=== PATIENT | male | born 1960 | race Caucasian/White ===

== ENCOUNTER 2016-11-04 00:04 | Inpatient (IN) | payer SELFPAY ==
[2016-11-04] MEDS ORDERED: NORMAL SALINE 1000 ML 1,000 ML IV ONE ×2 (00:16→01:46)
[2016-11-04 00:26] LABS: ABSOLUTE MONOCYTES (AUTO) 0.2 10^3/uL (0.1-1.4); ABSOLUTE NEUT (AUTO) 3.4 10^3/uL (1.7-8.2); BASOPHILS % (AUTO) 0.2 % (0-2); EOSINOPHILS % (AUTO) 0.4 % (0-6); HEMATOCRIT 49.7 % (37.9-51.0); HEMOGLOBIN 16.2 g/dL (13.5-17.0); HGB HCT DIFFERENCE -1.1; LYMPHOCYTES % (AUTO) 35.2 % (13-45); MEAN CORPUSCULAR HEMOGLOBIN 31.6 pg (27.0-33.4); MEAN CORPUSCULAR HGB CONC 32.5 g/dL (32.0-36.0); MEAN CORPUSCULAR VOLUME 97 fl (80-97); MONOCYTES % (AUTO) 3.4 % (3-13); RED CELL DISTRIBUTION WIDTH 15.8 % (11.5-14.0); SEGMENTED NEUTROPHILS % (AUTO) 60.8 % (42-78); WHITE BLOOD COUNT 5.7 10^3/uL (4.0-10.5)
[2016-11-04 00:38] LABS: BILIRUBIN,URINE NEGATIVE (NEGATIVE); GLUCOSE, URINE NEGATIVE (NEGATIVE); KETONES,URINE TRACE mg/dL (NEGATIVE); LEUKOCYTE ESTERASE,URINE NEGATIVE (NEGATIVE); NITRITE,URINE NEGATIVE (NEGATIVE); PROTEIN,URINE NEGATIVE (NEGATIVE); URINE SPECIFIC GRAVITY 1.013; UROBILINOGEN,URINE NEGATIVE mg/dL (<2.0)
[2016-11-04 00:39] LABS: APPEARANCE,URINE SLIGHTLY-CLOUDY
[2016-11-04 00:41] LABS: ALANINE AMINOTRANSFERASE 63 U/L (21-72); ALBUMIN 4.5 g/dL (3.5-5.0); ALCOHOL 196 mg/dL (NONE DETECTED); ALKALINE PHOSPHATASE 91 U/L (38-126); ASPARTATE AMINO TRANSFERASE 69 U/L (17-59); BILIRUBIN,TOTAL 0.6 mg/dL (0.2-1.3); BLOOD UREA NITROGEN 10 mg/dL (7-20); CALCIUM 8.8 mg/dL (8.4-10.2); CREATININE RESULT 1.05 mg/dL (0.52-1.25); GLUCOSE 140 mg/dL (75-110); TOTAL PROTEIN 7.3 g/dL (6.3-8.2)
[2016-11-04 00:50] LABS: ANION GAP 19 (5-19); CARBON DIOXIDE 23 mmol/L (22-30); CHLORIDE 109 mmol/L (98-107); SODIUM 150.9 mmol/L (137-145)
[2016-11-04 01:00] LABS: URINE BARBITURATES SCREEN NEGATIVE; URINE METHADONE SCREEN NEGATIVE; URINE PHENCYCLIDINE SCREEN NEGATIVE
--- NOTE | 2016-11-04 01:32 | ER Document Report ---
ED General - General Chief Complaint: Overdose Stated Complaint: POSSIBLE SUICIDAL IDEATION Notes: Patient is a 56-year-old male, unknown past medical history who presents intoxicated after a suicide attempt using ethylene glycol, alcohol and clonazepam. He does not provide meaningful history due to intoxication and somnolence at time of arrival. EMS states that the mother found the patient passed out on the floor with a glass of antifreeze next to him. He had apparently been drinking vodka all day. He also had an empty bottle of clonazepam next to him. Per chart review, patient has a prior history of mental illness and suicide attempts in the past. Patient is a very poor historian and unable to provide helpful history although he does repeatedly say yes when asked if this is a suicide attempt. - Related Data Allergies/Adverse Reactions: No Known Allergies Allergy (Unverified 11/04/16 00:38) Past Medical History - General Information source: Patient, Emergency Med Personnel Cannot obtain history due to: Intoxicated - Social History Smoking Status: Unknown if Ever Smoked Frequency of alcohol use: Occasional Family History: Reviewed & Not Pertinent Review of Systems - Review of Systems -: Yes ROS unobtainable due to patient's medical condition Physical Exam - Vital signs Vitals: Temp Resp BP Pulse Ox 98.9 F 18 146/110 H 95 11/04/16 00:14 11/04/16 00:14 11/04/16 00:14 11/04/16 00:14 Interpretation: Tachycardic Notes: PHYSICAL EXAMINATION: GENERAL: Disheveled and intoxicated but in no acute distress HEAD: Atraumatic, normocephalic. EYES: Pupils equal round and reactive to light, extraocular movements intact, sclera anicteric, conjunctiva are normal. ENT: nares patent, oropharynx clear without exudates. Dry mucous membranes. NECK: Normal range of motion, supple without lymphadenopathy LUNGS: Breath sounds clear to auscultation bilaterally and equal. No wheezes rales or rhonchi. HEART: Regular tachycardia without murmurs ABDOMEN: Soft, nontender, normoactive bowel sounds. No guarding, no rebound. No masses appreciated. EXTREMITIES: Normal range of motion, no pitting or edema. No cyanosis. NEUROLOGICAL: No focal neurological deficits. Moves all extremities spontaneously and on command. PSYCH: Intoxicated and somewhat somnolent but does respond to questions SKIN: Warm, Dry, normal turgor, no rashes or lesions noted. Course - Re-evaluation Re-evalutation: 11/04/16 0040 Patient arrives by EMS, confused, but does report his name that he drank flank like all. Patient was also noted to be drinking ethanol and apparently swallowed an unknown quantity of clonazepam. He is high risk for decompensation given his polysubstance ingestion including multiple agents that suppress a respiratory drive. He was immediately placed on monitoring specialist, IV fluids initiated, and a full laboratory assessment has been drawn. He is critically ill at this time and will require frequent reassessments 0120-patient continues to protect his airway without difficulty, actually somewhat more alert at this time. Laboratories show findings consistent with ethylene glycol toxicity. Calculated serum osmolality is 312 and serum osmosis 486. Osmolal gap was 174. This is consistent with ethylene glycol ingestion. I discussed this case with poison control who recommends initiation of fomepizole therapy at this time 15 mg/kg load and 10 mg/kg every 12 hours thereafter. Patient will require admission. No indication for dialysis at this time. 11/04/16 01:55 I discussed this case with the hospitalist Dr. Jhaveri who will admit the patient. I have placed the patient under IVC given the severity of his ingestion and his mission to me that this was a suicide attempt. He continues to be hemodynamically within normal limits and in no acute distress at this time. Continues to maintain his airway and his mental status is actually improved from the time of arrival. - Vital Signs Vital signs: Temp Pulse Resp BP Pulse Ox 98.9 F 18 146/110 H 92 11/04/16 00:14 11/04/16 00:14 11/04/16 00:14 11/04/16 00:15 - Laboratory Result Diagrams: 11/04/16 00:15 11/04/16 00:15 Laboratory results interpreted by me: 11/04/16 11/04/16 11/04/16 00:15 00:15 00:15 RDW 15.8 H Sodium 150.9 H Chloride 109 H Glucose 140 H Serum Osmolality 486 H AST 69 H Urine Ketones Urine Blood Salicylates < 1.0 L Acetaminophen < 10 L 11/04/16 00:25 RDW Sodium Chloride Glucose Serum Osmolality AST Urine Ketones TRACE H Urine Blood LARGE H Salicylates Acetaminophen - EKG Interpretation by Me Additional EKG results interpreted by me: 11/04/16 01:56 Sinus tachycardia. Rate 105. No ST elevations or depressions. QTC 498. Critical Care Note - Critical Care Note Total time excluding time spent on procedures (mins): 40 Comments: Critical care time spent obtaining history from patient or surrogate, discussions with consultants, development of treatment plan with patient or surrogate, evaluation of patient's response to treatment, examination of patient , ordering and performing treatments and interventions, ordering and review of laboratory studies, re-evaluation of patient's condition, ordering and review of radiographic studies and review of old charts Discharge - Discharge Clinical Impression: Attempted suicide Ethylene glycol poisoning Qualifiers: Encounter type: initial encounter Injury intent: intentional self-harm Qualified Code(s): T52.8X2A - Toxic effect of other organic solvents, intentional self-harm, initial encounter Alcohol intoxication Qualifiers: Complication of substance-induced condition: uncomplicated Qualified Code(s): F10.120 - Alcohol abuse with intoxication, uncomplicated Benzodiazepine overdose Qualifiers: Encounter type: initial encounter Injury intent: intentional self-harm Qualified Code(s): T42.4X2A - Poisoning by benzodiazepines, intentional self- harm, initial encounter Condition: Critical Disposition: ADMITTED INPATIENT Admitting Provider: [facility] Admitted: ICU
[2016-11-04] MEDS ORDERED: ALBUTEROL SULFATE 0.083% NEB 2.5 MG/3 ML AMPUL NEB PRN (02:59)
[2016-11-04 03:09] LABS: BLOOD UREA NITROGEN 10 mg/dL (7-20); CALCIUM 9.1 mg/dL (8.4-10.2); CARBON DIOXIDE 20 mmol/L (22-30); CHLORIDE 113 mmol/L (98-107); CREATININE RESULT 0.98 mg/dL (0.52-1.25); GLUCOSE 137 mg/dL (75-110)
[2016-11-04] MEDS ORDERED: FOMEPIZOLE INJ 1.5 GM/1.5 ML VIAL IV ONE (03:15)
[2016-11-04] MEDS ORDERED: THIAMINE HCL 100 MG, FOLIC ACID 1 MG in NORMAL SALINE 50 ML IV ONE (03:15)
[2016-11-04 03:18] LABS: ANION GAP 22 (5-19)
[2016-11-04 03:38] LABS: ARTERIAL BLOOD BASE EXCESS -2.7 mmol/L; ARTERIAL BLOOD O2 SATURATION 95.8 % (94-98)
[2016-11-04] MEDS ORDERED: THIAMINE HCL INJ 200 MG/2 ML VIAL ONE (03:46)
[2016-11-04] MEDS ORDERED: FOLIC ACID INJ 5 MG/1 ML 10 ML VIAL ONE (03:47)
[2016-11-04] MEDS ORDERED: SODIUM BICARBONATE 8.4% INJ 50 MEQ/50 ML DISP.SYRIN ONE (03:49)
[2016-11-04] MEDS ORDERED: LEUCOVORIN INJ ONE (03:57)
[2016-11-04] MEDS: DEXTROSE 5%-WATER 1000 ML 1,000 ML with SODIUM BICARBONATE 150 MEQ IV SCH ×4 (04:10→18:56)
[2016-11-04] MEDS ORDERED: WATER IV ONE ×2 (04:45→10:00)
[2016-11-04] MEDS ORDERED: LEUCOVORIN CALCIUM IV ONE ×2 (04:45→10:00)
[2016-11-04] MEDS ORDERED: DEXTROSE 5% IV ONE ×2 (04:45→10:00)
[2016-11-04 05:03] LABS: CREATINE KINASE MB < 0.22 ng/mL (<4.55); TROPONIN I < 0.012 ng/mL
--- NOTE | 2016-11-04 05:03 | PDOC H&P ---
History of Present Illness Admission Date/PCP: 11/04/16 02:18 Patient complains of: Altered mental status History of Present Illness: LORENE BOWDEN is a 56 year old male with a past medical history of depression and suicide attempt by wrist cutting. It was discovered by his elderly mother unresponsive on the floor and brought to the emergency room for evaluation where his found to be intermittently cooperative and intoxicated. Stating he has ingested an unknown quantity of vodka, antifreeze and approximately 15/2 mg tablets of Klonopin with intention of suicide. Labs confirm alcohol level of 200 and a serum osmolality of 486. Poison control is contacted recommending omeprazole bicarbonate thiamine folate, serial chemistries and supportive measures and is referred to the hospitalist for admission as emergent dialysis is felt unwarranted. Past Medical History Psychiatric Medical History: Reports: Depression Social History Information Source: Patient, Emergency Med Personnel, [facility] Records Lives with: Family Smoking Status: Unknown if Ever Smoked - Advance Directive Resuscitation Status: Full Code Family History Family History: Other - Patient unwilling to answer Parental Family History Reviewed: Yes Children Family History Reviewed: Yes Sibling(s) Family History Reviewed.: Yes Medication/Allergy Allergies/Adverse Reactions: No Known Allergies Allergy (Unverified 11/04/16 00:38) Review of Systems ROS unobtainable: Due to mental status Physical Exam Vital Signs: Temp Pulse Resp BP Pulse Ox 98.9 F 17 149/113 H 98 11/04/16 00:14 11/04/16 03:00 11/04/16 04:14 11/04/16 04:14 General appearance: PRESENT: disheveled, mild distress Head exam: PRESENT: atraumatic, normocephalic Eye exam: PRESENT: conjunctiva pink, EOMI, PERRLA. ABSENT: scleral icterus Ear exam: PRESENT: normal external ear exam Mouth exam: PRESENT: moist, tongue midline Neck exam: ABSENT: carotid bruit, JVD, lymphadenopathy, thyromegaly Respiratory exam: PRESENT: clear to auscultation kathleen. ABSENT: rales, rhonchi, wheezes Cardiovascular exam: PRESENT: RRR. ABSENT: diastolic murmur, rubs, systolic murmur Pulses: PRESENT: normal dorsalis pedis pul Vascular exam: PRESENT: normal capillary refill GI/Abdominal exam: PRESENT: normal bowel sounds, soft. ABSENT: distended, guarding, mass, organolmegaly, rebound, tenderness Rectal exam: PRESENT: deferred Extremities exam: PRESENT: full ROM. ABSENT: calf tenderness, clubbing, pedal edema Neurological exam: PRESENT: alert, altered, awake, oriented to person, CN II- XII grossly intact. ABSENT: motor sensory deficit Psychiatric exam: PRESENT: flat affect Skin exam: PRESENT: dry, intact, warm. ABSENT: cyanosis, rash Results Laboratory Results: 11/04/16 02:28 11/04/16 11/04/16 02:28 03:16 Carbonic Acid 1.25 HCO3/H2CO3 Ratio 18:1 ABG pH 7.36 ABG pCO2 41.4 ABG pO2 83.4 ABG HCO3 22.7 ABG O2 Saturation 95.8 ABG Base Excess -2.7 FiO2 2L Sodium 155.0 H Potassium 5.0 Chloride 113 H Carbon Dioxide 20 L Anion Gap 22 H BUN 10 Creatinine 0.98 Est GFR ( Amer) > 60 Est GFR (Non-Af Amer) > 60 Glucose 137 H Calcium 9.1 Assessment & Plan - Diagnosis (1) Ethylene glycol poisoning Qualifiers: Encounter type: initial encounter Injury intent: intentional self-harm Qualified Code(s): T52.8X2A - Toxic effect of other organic solvents, intentional self-harm, initial encounter Is this a current diagnosis for this admission?: YesPlan: Discussed with poison control recommending omeprazole every 12 hours, thiamine folate, bicarbonate and serial chemistries. (2) Alcohol intoxication Qualifiers: Complication of substance-induced condition: uncomplicated Qualified Code(s): F10.120 - Alcohol abuse with intoxication, uncomplicated Is this a current diagnosis for this admission?: YesPlan: Thiamine folate and supportive measures (3) Benzodiazepine overdose Qualifiers: Encounter type: initial encounter Injury intent: intentional self-harm Qualified Code(s): T42.4X2A - Poisoning by benzodiazepines, intentional self-harm, initial encounter Is this a current diagnosis for this admission?: YesPlan: Though stated by patient to have ingested 15 prior to presentation I am doubtful given his mental status as he is not sedated the likely dependent I anticipate benzodiazepine withdrawal and will likely require low-dose every 12 Ativan (4) Suicide attempt Is this a current diagnosis for this admission?: YesPlan: Patient states intention of suicide will consult mental health - Time Time Spent: 50 to 70 Minutes
[2016-11-04] MEDS ORDERED: ONDANSETRON HCL INJ/PF 4 MG/2 ML SDV ONE (05:39)
[2016-11-04] MEDS ORDERED: ONDANSETRON HCL INJ/PF 4 MG/2 ML SDV IV ONE (05:50)
[2016-11-04] MEDS ORDERED: INFLUENZA ADLT QUAD (36MOS+) 2016-17 VAC 0.5 ML SYR IM PRN (05:51)
[2016-11-04] MEDS: HEPARIN SOD (PORCINE) 5,000 UNIT/ML 1 ML SYRINGE SUBCUT SCH ×3 (06:17→22:30)
[2016-11-04 06:44] LABS: ANION GAP 18 (5-19); BLOOD UREA NITROGEN 10 mg/dL (7-20); CALCIUM 8.6 mg/dL (8.4-10.2); CARBON DIOXIDE 23 mmol/L (22-30); CHLORIDE 114 mmol/L (98-107); CREATINE KINASE 72 U/L (55-170); CREATININE RESULT 0.95 mg/dL (0.52-1.25); GLUCOSE 155 mg/dL (75-110); POTASSIUM 4.7 mmol/L (3.6-5.0); SODIUM 154.6 mmol/L (137-145)
[2016-11-04 06:48] LABS: PROTHROMBIN TIME 12.9 SEC (11.4-15.4)
[2016-11-04 06:54] LABS: CREATINE KINASE MB 0.25 ng/mL (<4.55); TROPONIN I 0.017 ng/mL
[2016-11-04 07:05] LABS: ALBUMIN 4.3 g/dL (3.5-5.0); BILIRUBIN,TOTAL 1.3 mg/dL (0.2-1.3); TOTAL PROTEIN 6.7 g/dL (6.3-8.2)
--- NOTE | 2016-11-04 08:13 | EKG REPORT ---
SEVERITY:- ABNORMAL ECG - SINUS TACHYCARDIA LEFT AXIS DEVIATION CONSIDER ANTERIOR INFARCT BORDERLINE PROLONGED QT INTERVAL : Confirmed by: Logan Aquino MD 04-Nov-2016 08:12:38
[2016-11-04] MEDS ORDERED: NORMAL SALINE 1000 ML 1,000 ML IV PRN (08:28)
[2016-11-04] MEDS ORDERED: LORAZEPAM INJ 2 MG/1 ML VIAL IV PRN (08:28)
[2016-11-04] MEDS ORDERED: ONDANSETRON HCL INJ/PF 4 MG/2 ML SDV IV PRN (08:36)
[2016-11-04] MEDS ORDERED: ONDANSETRON 4 MG TAB.RAPDIS PO PRN (08:36)
[2016-11-04] MEDS ORDERED: PROMETHAZINE HCL 25 MG SUPP.RECT PR PRN (08:38)
[2016-11-04] MEDS: THIAMINE HCL 100 MG, FOLIC ACID 1 MG in NORMAL SALINE 50 ML IV SCH (09:34)
[2016-11-04] MEDS: PANTOPRAZOLE SODIUM 40 MG VIAL IV SCH ×2 (09:39→22:30)
[2016-11-04] MEDS: DOCUSATE SODIUM 100 MG CAPSULE PO SCH ×2 (09:39→18:55)
[2016-11-04] MEDS ORDERED: FOMEPIZOLE INJ 1.5 GM/1.5 ML VIAL IV SCH ×2 (10:00→15:00)
[2016-11-04 10:20] LABS: ANION GAP 15 (5-19); BLOOD UREA NITROGEN 11 mg/dL (7-20); CALCIUM 8.7 mg/dL (8.4-10.2); CARBON DIOXIDE 25 mmol/L (22-30); CHLORIDE 114 mmol/L (98-107); CREATININE RESULT 0.84 mg/dL (0.52-1.25); GLUCOSE 168 mg/dL (75-110); POTASSIUM 4.3 mmol/L (3.6-5.0); SODIUM 153.9 mmol/L (137-145)
[2016-11-04 15:18] LABS: ANION GAP 14 (5-19); BLOOD UREA NITROGEN 11 mg/dL (7-20); CALCIUM 7.9 mg/dL (8.4-10.2); CARBON DIOXIDE 27 mmol/L (22-30); CHLORIDE 106 mmol/L (98-107); CREATINE KINASE 67 U/L (55-170); CREATININE RESULT 0.75 mg/dL (0.52-1.25); GLUCOSE 129 mg/dL (75-110); POTASSIUM 3.8 mmol/L (3.6-5.0); SODIUM 146.5 mmol/L (137-145)
[2016-11-04 15:27] LABS: CREATINE KINASE MB < 0.22 ng/mL (<4.55); TROPONIN I < 0.012 ng/mL
[2016-11-04] MEDS: FOMEPIZOLE IV SCH (15:38)
[2016-11-04] MEDS: WATER IV SCH (15:38)
[2016-11-04] MEDS: DEXTROSE 5% IV SCH (15:38)
[2016-11-04] MEDS ORDERED: DIAZEPAM 5 MG TABLET PO ONE (16:00)
--- NOTE | 2016-11-04 16:34 | PSYCHOLOGICAL NOTE ---
Psych Note - Psych Note Psych Note: Patient presented to [facility] ED after a suicide attempt using ethylene glycol, alcohol and clonazepam. Patient states that he has been feeling depressed because he lost his job a couple weeks ago. He states that he had been sick and called work the third day however they stated that he should've called the first day. He continued disclosed that he is sick a total of 4 days. Patient continued to state that he lost his car yesterday. He disclosed that while he didn't have enough money to pay for the loan he also received a DUI. Patient states he is a binge drinker and that he started drinking at the age of 15. Patient states that he is suffered from depression most of his adult life and has gone to rehabilitation in 2017. Patient states that he is attempted suicide 3 times however this is the closest he has come to succeeding. When asked if he feels differently about suicide today he states that he is indifferent. Patient states that he has never received outpatient services for mental health and that his Clonazepam was prescribed by a general practitioner. Patient is alert and orientated to person place time and circumstance. Mood is dysphoric with flat affect. Patient endorses suicidal ideation denies homicidal ideation. Patient denies auditory and visual hallucinations; no delusions are noted. Thought process is organized and linear however it is noted patient has substance abuse which affects logical thought process. Conversational speech was within normal rate, tone and prosody. Eye contact was fair. Intellectual abilities appear to be within average range. Attention and concentration were fair. Insight, judgment, impulse control are currently impaired. 311 (F32.9) Unspecified Depressive Disorder 303.90 (F10.20) Alcohol Related Disorder; Severe Impression\plan: Patient is recommended to remain under IVC; insight judgment impulse control are currently impaired. Patient is a danger to himself. Patient continues to endorse suicidal ideation. Patient is in need of psychiatric inpatient treatment that can assist in dual diagnosis of substance abuse with alcohol upon medical clearance. Attending physician is in agreement with recommendations and disposition
--- NOTE | 2016-11-04 18:05 | PDOC PROGRESS REPORT ---
Subjective Progress Note for:: 11/04/16 Subjective:: Patient is having nausea and vomiting. He is still requesting oral fluids. Patient denies chest pain, shortness of breath, abdominal pain, fevers, chills, diarrhea, constipation, headache, new onset weakness. Physical Exam Vital Signs: Temp Pulse Resp BP Pulse Ox 97.9 F 108 H 18 158/99 H 95 11/04/16 05:00 11/04/16 05:00 11/04/16 07:39 11/04/16 07:39 11/04/16 07:39 Intake & Output 11/03/16 11/04/16 11/05/16 06:59 06:59 06:59 Output Total 925 400 Balance -925 -400 Weight 94.9 kg Exam: General: Obese, Awake alert and answering questions, no acute respiratory distress HEENT: AT/NC, PERRL, EOMI, oropharynx is moist, pink, no scleral icterus, no conjunctival injection Neck: No JVD, trachea midline Chest: Clear to auscultation bilaterally, no wheezes rhonchi or rales CV: Regular rate and rhythm, normal S1 and S2, no murmur, rub, or gallop Abdomen: Soft, nontender to palpation, nondistended, active bowel sounds; no rebound, rigidity, or guarding Extremities: No cyanosis, clubbing or edema Neuro: Cranial nerves II through XII are grossly intact without focal deficits Psych: Dysphoric mood and flat affect Results Laboratory Results: 11/04/16 06:13 11/04/16 11/04/16 11/04/16 03:16 06:13 06:13 Carbonic Acid 1.25 HCO3/H2CO3 Ratio 18:1 ABG pH 7.36 ABG pCO2 41.4 ABG pO2 83.4 ABG HCO3 22.7 ABG O2 Saturation 95.8 ABG Base Excess -2.7 FiO2 2L Sodium 154.6 H Potassium 4.7 Chloride 114 H Carbon Dioxide 23 Anion Gap 18 BUN 10 Creatinine 0.95 Est GFR ( Amer) > 60 Est GFR (Non-Af Amer) > 60 Glucose 155 H Calcium 8.6 Total Bilirubin 1.3 AST 78 H ALT 54 Alkaline Phosphatase 76 Total Protein 6.7 Albumin 4.3 11/04/16 11/04/16 06:13 06:13 Creatine Kinase 72 CK-MB (CK-2) 0.25 Troponin I 0.017 Assessment & Plan - Diagnosis (1) Ethylene glycol poisoning Qualifiers: Encounter type: initial encounter Injury intent: intentional self-harm Qualified Code(s): T52.8X2A - Toxic effect of other organic solvents, intentional self-harm, initial encounter Is this a current diagnosis for this admission?: YesPlan: Patient currently on IVC and receiving omeprazole. In touch with poison control. Continuing to monitor serial BMPs. Pending the etheylene glycol level. Patient is receiving leucovorin. (2) Alcohol abuse Is this a current diagnosis for this admission?: YesPlan: On thiamine, folic acid, scheduled Valium, and when necessary Ativan. (3) Alcohol intoxication Qualifiers: Complication of substance-induced condition: uncomplicated Qualified Code(s): F10.120 - Alcohol abuse with intoxication, uncomplicated Is this a current diagnosis for this admission?: Yes (4) Benzodiazepine overdose Qualifiers: Encounter type: initial encounter Injury intent: intentional self-harm Qualified Code(s): T42.4X2A - Poisoning by benzodiazepines, intentional self-harm, initial encounter Is this a current diagnosis for this admission?: Yes (5) Suicide attempt Is this a current diagnosis for this admission?: YesPlan: IVC and psych consult (6) Obesity due to excess calories Qualifiers: Obesity severity: non-morbid Qualified Code(s): E66.09 - Other obesity due to excess calories Is this a current diagnosis for this admission?: Yes - Time Critical Time spent with patient: 25-34 minutes Medications reviewed and adjusted accordingly: Yes Anticipated discharge: Other - Psychiatric facility
[2016-11-04 18:30] LABS: ANION GAP 12 (5-19); BLOOD UREA NITROGEN 11 mg/dL (7-20); CALCIUM 7.5 mg/dL (8.4-10.2); CARBON DIOXIDE 26 mmol/L (22-30); CHLORIDE 105 mmol/L (98-107); CREATININE RESULT 0.77 mg/dL (0.52-1.25); GLUCOSE 103 mg/dL (75-110); POTASSIUM 3.5 mmol/L (3.6-5.0); SODIUM 142.7 mmol/L (137-145)
[2016-11-04] MEDS: DIAZEPAM 5 MG TABLET PO SCH (18:55)
[2016-11-04] MEDS: NORMAL SALINE 1000 ML 1,000 ML IV PRN (18:58)
[2016-11-04] MEDS: LORAZEPAM INJ 2 MG/1 ML VIAL IV PRN (22:25)
[2016-11-04 22:30] LABS: ANION GAP 10 (5-19); BLOOD UREA NITROGEN 10 mg/dL (7-20); CALCIUM 7.1 mg/dL (8.4-10.2); CARBON DIOXIDE 28 mmol/L (22-30); CHLORIDE 103 mmol/L (98-107); CREATININE RESULT 0.69 mg/dL (0.52-1.25); GLUCOSE 92 mg/dL (75-110); POTASSIUM 3.2 mmol/L (3.6-5.0); SODIUM 140.6 mmol/L (137-145)
[2016-11-05] MEDS: DIAZEPAM 5 MG TABLET PO SCH ×5 (00:34→23:09)
[2016-11-05] MEDS: LORAZEPAM INJ 2 MG/1 ML VIAL IV PRN (01:05)
[2016-11-05] MEDS ORDERED: POTASSI CL 20 MEQ/50 ML RIDER 40 MEQ/100 ML RTUPB IV ONE (03:16)
[2016-11-05] MEDS: POTASSI CL 20 MEQ/50 ML RIDER 50 ML IV SCH ×2 (03:33→05:39)
[2016-11-05] MEDS: WATER IV SCH ×2 (03:33→15:33)
[2016-11-05] MEDS: FOMEPIZOLE IV SCH ×2 (03:33→15:33)
[2016-11-05] MEDS: DEXTROSE 5% IV SCH ×2 (03:33→15:33)
[2016-11-05 04:46] LABS: ABSOLUTE BASOPHILS # (AUTO) 0.1 10^3/uL (0.0-0.2); ABSOLUTE LYMPHOCYTES (AUTO) 1.2 10^3/uL (0.5-4.7); ABSOLUTE MONOCYTES (AUTO) 0.4 10^3/uL (0.1-1.4); ABSOLUTE NEUT (AUTO) 4.4 10^3/uL (1.7-8.2); BASOPHILS % (AUTO) 1.1 % (0-2); EOSINOPHILS % (AUTO) 0.6 % (0-6); HEMATOCRIT 36.5 % (37.9-51.0); HGB HCT DIFFERENCE 0.7; MEAN CORPUSCULAR HEMOGLOBIN 31.9 pg (27.0-33.4); MEAN CORPUSCULAR HGB CONC 33.9 g/dL (32.0-36.0); MEAN CORPUSCULAR VOLUME 94 fl (80-97); MONOCYTES % (AUTO) 6.4 % (3-13); RED BLOOD COUNT 3.88 10^6/uL (4.35-5.55); RED CELL DISTRIBUTION WIDTH 15.3 % (11.5-14.0); SEGMENTED NEUTROPHILS % (AUTO) 72.9 % (42-78); WHITE BLOOD COUNT 6.1 10^3/uL (4.0-10.5)
[2016-11-05 04:50] LABS: HEMOGLOBIN 12.4 g/dL (13.5-17.0)
[2016-11-05 04:52] LABS: PROTHROMBIN TIME 13.6 SEC (11.4-15.4)
[2016-11-05 04:54] LABS: BILIRUBIN,TOTAL 1.2 mg/dL (0.2-1.3)
[2016-11-05] MEDS: HEPARIN SOD (PORCINE) 5,000 UNIT/ML 1 ML SYRINGE SUBCUT SCH ×3 (05:40→23:10)
[2016-11-05] MEDS ORDERED: POTASSIUM CHLORIDE 10 MEQ TABLET.SA PO ONE ×2 (08:30→10:45)
[2016-11-05 09:03] LABS: ANION GAP 8 (5-19); BLOOD UREA NITROGEN 8 mg/dL (7-20); CARBON DIOXIDE 30 mmol/L (22-30); CHLORIDE 105 mmol/L (98-107); CREATININE RESULT 0.72 mg/dL (0.52-1.25); GLUCOSE 94 mg/dL (75-110); MAGNESIUM 1.7 mg/dL (1.6-2.3); SODIUM 142.8 mmol/L (137-145)
[2016-11-05 09:16] LABS: CALCIUM 6.9 mg/dL (8.4-10.2)
[2016-11-05] MEDS: PANTOPRAZOLE SODIUM 40 MG VIAL IV SCH (09:29)
[2016-11-05] MEDS: DOCUSATE SODIUM 100 MG CAPSULE PO SCH ×2 (09:29→17:41)
[2016-11-05] MEDS: FOLIC ACID 1 MG TABLET PO SCH (09:29)
[2016-11-05] MEDS: THIAMINE HCL 100 MG, FOLIC ACID 1 MG in NORMAL SALINE 50 ML IV SCH (09:51)
[2016-11-05] MEDS ORDERED: POTASSI CL 20 MEQ/50 ML RIDER 20 MEQ/50 ML RTUPB IV SCH (11:00)
[2016-11-05] MEDS: NORMAL SALINE 1000 ML 1,000 ML IV PRN ×2 (11:27→19:47)
[2016-11-05] MEDS: MAGNESIUM SULFATE/D5W 1 GM/100 ML RTUPB IV SCH ×2 (11:27→13:21)
[2016-11-05] MEDS ORDERED: POTASSIUM CHLORIDE 20 MEQ/50 ML RTU IV ONE (13:00)
--- NOTE | 2016-11-05 15:18 | PDOC PROGRESS REPORT ---
Subjective Progress Note for:: 11/05/16 Subjective:: Patient reports he's feeling much better than yesterday. He denies any active suicidal ideation. Patient denies chest pain, shortness of breath, abdominal pain, nausea, vomiting, fevers, chills, diarrhea, constipation, headache, new onset weakness. Physical Exam Vital Signs: Temp Pulse Resp BP Pulse Ox 97.5 F 80 13 129/86 H 100 11/05/16 07:45 11/05/16 07:45 11/05/16 07:45 11/05/16 07:45 11/05/16 07:45 Intake & Output 11/04/16 11/05/16 11/06/16 06:59 06:59 06:59 Intake Total 91750 600 Output Total 925 2786 320 Balance -925 3170 280 Weight 94.9 kg 99.6 kg Exam: General: Awake alert and oriented x3, no acute respiratory distress HEENT: AT/NC, PERRL, EOMI, oropharynx is moist, pink, no scleral icterus, no conjunctival injection Neck: No JVD, trachea midline Chest: Bibasilar crackles CV: Regular rate and rhythm, normal S1 and S2, no murmur, rub, or gallop Abdomen: Soft, nontender to palpation, nondistended, active bowel sounds; no rebound, rigidity, or guarding Extremities: No cyanosis, clubbing; trace edema Neuro: Cranial nerves II through XII are grossly intact without focal deficits; awake alert and oriented x3 Psych: Dysthymic mood and blunted affect Results Laboratory Results: 11/05/16 04:25 11/04/16 22:08 11/04/16 11/04/16 11/04/16 06:13 09:51 14:13 WBC RBC Hgb Hct MCV MCH MCHC RDW Plt Count Seg Neutrophils % Lymphocytes % Monocytes % Eosinophils % Basophils % Absolute Neutrophils Absolute Lymphocytes Absolute Monocytes Absolute Eosinophils Absolute Basophils Sodium 153.9 H 146.5 H Potassium 4.3 3.8 Chloride 114 H 106 Carbon Dioxide 25 27 Anion Gap 15 14 BUN 11 11 Creatinine 0.84 0.75 Est GFR ( Amer) > 60 > 60 Est GFR (Non-Af Amer) > 60 > 60 Glucose 168 H 129 H Calcium 8.7 7.9 L Magnesium 2.2 Total Bilirubin AST ALT Alkaline Phosphatase Total Protein Albumin 11/04/16 11/04/16 11/05/16 18:05 22:08 04:25 WBC 6.1 RBC 3.88 L Hgb 12.4 L D Hct 36.5 L MCV 94 MCH 31.9 MCHC 33.9 RDW 15.3 H Plt Count 183 Seg Neutrophils % 72.9 Lymphocytes % 19.0 Monocytes % 6.4 Eosinophils % 0.6 Basophils % 1.1 Absolute Neutrophils 4.4 Absolute Lymphocytes 1.2 Absolute Monocytes 0.4 Absolute Eosinophils 0.0 Absolute Basophils 0.1 Sodium 142.7 140.6 Potassium 3.5 L 3.2 L Chloride 105 103 Carbon Dioxide 26 28 Anion Gap 12 10 BUN 11 10 Creatinine 0.77 0.69 Est GFR ( Amer) > 60 > 60 Est GFR (Non-Af Amer) > 60 > 60 Glucose 103 92 Calcium 7.5 L 7.1 L Magnesium Total Bilirubin AST ALT Alkaline Phosphatase Total Protein Albumin 11/05/16 04:25 WBC RBC Hgb Hct MCV MCH MCHC RDW Plt Count Seg Neutrophils % Lymphocytes % Monocytes % Eosinophils % Basophils % Absolute Neutrophils Absolute Lymphocytes Absolute Monocytes Absolute Eosinophils Absolute Basophils Sodium Potassium Chloride Carbon Dioxide Anion Gap BUN Creatinine Est GFR ( Amer) Est GFR (Non-Af Amer) Glucose Calcium Magnesium Total Bilirubin 1.2 AST 37 ALT 41 Alkaline Phosphatase 61 Total Protein 5.0 L Albumin 3.0 L 11/04/16 11/04/16 11/04/16 06:13 06:13 13:17 Creatine Kinase 72 CK-MB (CK-2) 0.25 Cancelled Troponin I 0.017 Cancelled 11/04/16 11/04/16 14:13 14:13 Creatine Kinase 67 CK-MB (CK-2) < 0.22 Troponin I < 0.012 Assessment & Plan - Diagnosis (1) Ethylene glycol poisoning Qualifiers: Encounter type: initial encounter Injury intent: intentional self-harm Qualified Code(s): T52.8X2A - Toxic effect of other organic solvents, intentional self-harm, initial encounter Is this a current diagnosis for this admission?: YesPlan: Patient currently on IVC and receiving fomeprazole and leucovorin.. In touch with poison control. Monitor serial BMPs. Pending the etheylene glycol level. Continue IV fluids until a ethylene glycol level results (2) Alcohol abuse Is this a current diagnosis for this admission?: YesPlan: On thiamine, folic acid, scheduled Valium, and when necessary Ativan. (3) Alcohol intoxication Qualifiers: Complication of substance-induced condition: uncomplicated Qualified Code(s): F10.120 - Alcohol abuse with intoxication, uncomplicated Is this a current diagnosis for this admission?: Yes (4) Benzodiazepine overdose Qualifiers: Encounter type: initial encounter Injury intent: intentional self-harm Qualified Code(s): T42.4X2A - Poisoning by benzodiazepines, intentional self-harm, initial encounter Is this a current diagnosis for this admission?: Yes (5) Suicide attempt Is this a current diagnosis for this admission?: YesPlan: IVC and psych consult. Continue to pursue inpatient placement once medically stable (6) Obesity due to excess calories Qualifiers: Obesity severity: non-morbid Qualified Code(s): E66.09 - Other obesity due to excess calories Is this a current diagnosis for this admission?: Yes - Time Time Spent with patient: 25-34 minutes Medications reviewed and adjusted accordingly: Yes Anticipated discharge: Other - Psychiatric
[2016-11-05] MEDS ORDERED: FUROSEMIDE 40 MG TABLET PO ONE (15:45)
[2016-11-05] MEDS: LANSOPRAZOLE 30 MG TAB.RAP.DR PO SCH (17:40)
[2016-11-05] MEDS ORDERED: POTASSIUM CHLORIDE 10 MEQ TABLET.SA PO SCH (22:00)
[2016-11-06] MEDS: DEXTROSE 5% IV SCH (02:47)
[2016-11-06] MEDS: FOMEPIZOLE IV SCH (02:47)
[2016-11-06] MEDS: WATER IV SCH (02:47)
[2016-11-06] MEDS: NORMAL SALINE 1000 ML 1,000 ML IV PRN ×2 (02:47→08:40)
[2016-11-06 05:05] LABS: ABSOLUTE EOSINOPHILS # (AUTO) 0.1 10^3/uL (0.0-0.6); ABSOLUTE LYMPHOCYTES (AUTO) 1.2 10^3/uL (0.5-4.7); ABSOLUTE MONOCYTES (AUTO) 0.4 10^3/uL (0.1-1.4); ABSOLUTE NEUT (AUTO) 2.8 10^3/uL (1.7-8.2); BASOPHILS % (AUTO) 0.7 % (0-2); EOSINOPHILS % (AUTO) 1.8 % (0-6); HEMATOCRIT 37.1 % (37.9-51.0); HEMOGLOBIN 12.5 g/dL (13.5-17.0); HGB HCT DIFFERENCE 0.4; LYMPHOCYTES % (AUTO) 26.4 % (13-45); MEAN CORPUSCULAR HEMOGLOBIN 32.1 pg (27.0-33.4); MEAN CORPUSCULAR HGB CONC 33.7 g/dL (32.0-36.0); MEAN CORPUSCULAR VOLUME 95 fl (80-97); MONOCYTES % (AUTO) 9.1 % (3-13); RED CELL DISTRIBUTION WIDTH 15.4 % (11.5-14.0); WHITE BLOOD COUNT 4.5 10^3/uL (4.0-10.5)
[2016-11-06 05:29] LABS: ANION GAP 8 (5-19); BLOOD UREA NITROGEN 8 mg/dL (7-20); CALCIUM 7.1 mg/dL (8.4-10.2); CARBON DIOXIDE 23 mmol/L (22-30); CHLORIDE 108 mmol/L (98-107); CREATININE RESULT 0.83 mg/dL (0.52-1.25); GLUCOSE 84 mg/dL (75-110); SODIUM 139.3 mmol/L (137-145)
[2016-11-06 05:41] LABS: POTASSIUM 4.2 mmol/L (3.6-5.0)
[2016-11-06] MEDS: LANSOPRAZOLE 30 MG TAB.RAP.DR PO SCH ×2 (06:06→19:10)
[2016-11-06] MEDS: DIAZEPAM 5 MG TABLET PO SCH ×3 (06:06→19:10)
[2016-11-06] MEDS: HEPARIN SOD (PORCINE) 5,000 UNIT/ML 1 ML SYRINGE SUBCUT SCH ×3 (06:07→22:13)
[2016-11-06] MEDS: THIAMINE HCL 100 MG, FOLIC ACID 1 MG in NORMAL SALINE 50 ML IV SCH (08:54)
[2016-11-06] MEDS: DOCUSATE SODIUM 100 MG CAPSULE PO SCH ×2 (08:55→19:10)
[2016-11-06] MEDS: FOLIC ACID 1 MG TABLET PO SCH (08:55)
[2016-11-06] MEDS ORDERED: NORMAL SALINE 1000 ML 1,000 ML IV PRN (09:54)
[2016-11-06 10:57] LABS: ANION GAP 12 (5-19); BLOOD UREA NITROGEN 9 mg/dL (7-20); CALCIUM 7.3 mg/dL (8.4-10.2); CARBON DIOXIDE 19 mmol/L (22-30); CHLORIDE 109 mmol/L (98-107); CREATININE RESULT 0.69 mg/dL (0.52-1.25); GLUCOSE 109 mg/dL (75-110); POTASSIUM 3.7 mmol/L (3.6-5.0)
--- NOTE | 2016-11-06 16:38 | PDOC PROGRESS REPORT ---
Subjective Progress Note for:: 11/06/16 Subjective:: Patient denies chest pain, shortness of breath, abdominal pain, nausea, vomiting , fevers, chills, diarrhea, constipation, headache, new onset weakness. Physical Exam Vital Signs: Temp Pulse Resp BP Pulse Ox 97.4 F 80 20 119/72 100 11/06/16 11:20 11/06/16 11:20 11/06/16 11:20 11/06/16 11:20 11/06/16 11:20 Intake & Output 11/05/16 11/06/16 11/07/16 06:59 06:59 06:59 [place] 85803 7526 946 Output Total 7545 8220 650 Balance 3170 -315 296 Weight 99.6 kg 103.2 kg Exam: General: Awake alert and oriented x3, no acute respiratory distress HEENT: AT/NC, PERRL, EOMI, oropharynx is moist, pink, no scleral icterus, no conjunctival injection Neck: No JVD, trachea midline Chest: Clear to auscultation bilaterally CV: Regular rate and rhythm, normal S1 and S2, no murmur, rub, or gallop Abdomen: Soft, nontender to palpation, nondistended, active bowel sounds; no rebound, rigidity, or guarding Extremities: No cyanosis, clubbing; trace edema Neuro: Cranial nerves II through XII are grossly intact without focal deficits; awake alert and oriented x3 Psych: Dysthymic mood and blunted affect Skin: Pustule 1 mm at antecubital fossa on right arm with a small amount of surrounding erythema no lymphangitic streaking Results Laboratory Results: 11/06/16 04:16 11/06/16 10:22 11/06/16 11/06/16 11/06/16 04:16 04:16 10:22 WBC 4.5 RBC 3.90 L Hgb 12.5 L Hct 37.1 L MCV 95 MCH 32.1 MCHC 33.7 RDW 15.4 H Plt Count 164 Seg Neutrophils % 62.0 Lymphocytes % 26.4 Monocytes % 9.1 Eosinophils % 1.8 Basophils % 0.7 Absolute Neutrophils 2.8 Absolute Lymphocytes 1.2 Absolute Monocytes 0.4 Absolute Eosinophils 0.1 Absolute Basophils 0.0 Sodium 139.3 140.0 Potassium 4.2 D 3.7 Chloride 108 H 109 H Carbon Dioxide 23 19 L Anion Gap 8 12 BUN 8 9 Creatinine 0.83 0.69 Est GFR ( Amer) > 60 > 60 Est GFR (Non-Af Amer) > 60 > 60 Glucose 84 109 Serum Osmolality Calcium 7.1 L 7.3 L 11/06/16 10:22 WBC RBC Hgb Hct MCV MCH MCHC RDW Plt Count Seg Neutrophils % Lymphocytes % Monocytes % Eosinophils % Basophils % Absolute Neutrophils Absolute Lymphocytes Absolute Monocytes Absolute Eosinophils Absolute Basophils Sodium Potassium Chloride Carbon Dioxide Anion Gap BUN Creatinine Est GFR ( Amer) Est GFR (Non-Af Amer) Glucose Serum Osmolality 287 Calcium 11/04/16 11/04/16 11/04/16 06:13 06:13 13:17 Creatine Kinase 72 CK-MB (CK-2) 0.25 Cancelled Troponin I 0.017 Cancelled 11/04/16 11/04/16 14:13 14:13 Creatine Kinase 67 CK-MB (CK-2) < 0.22 Troponin I < 0.012 Assessment & Plan - Diagnosis (1) Ethylene glycol poisoning Qualifiers: Encounter type: initial encounter Injury intent: intentional self-harm Qualified Code(s): T52.8X2A - Toxic effect of other organic solvents, intentional self-harm, initial encounter Is this a current diagnosis for this admission?: YesPlan: Patient currently on IVC. Discussed with tape deck installer at [place] poison control and they state that if patient's BMP and osmolality done at the same time are normal then patient may be discontinued on current therapy. (2) Alcohol abuse Is this a current diagnosis for this admission?: YesPlan: On thiamine, folic acid, scheduled Valium, and when necessary Ativan. (3) Alcohol intoxication Qualifiers: Complication of substance-induced condition: uncomplicated Qualified Code(s): F10.120 - Alcohol abuse with intoxication, uncomplicated Is this a current diagnosis for this admission?: Yes (4) Benzodiazepine overdose Qualifiers: Encounter type: initial encounter Injury intent: intentional self-harm Qualified Code(s): T42.4X2A - Poisoning by benzodiazepines, intentional self-harm, initial encounter Is this a current diagnosis for this admission?: Yes (5) Suicide attempt Is this a current diagnosis for this admission?: Yes (6) Obesity due to excess calories Qualifiers: Obesity severity: non-morbid Qualified Code(s): E66.09 - Other obesity due to excess calories Is this a current diagnosis for this admission?: Yes - Time Time Spent with patient: 25-34 minutes Medications reviewed and adjusted accordingly: Yes Anticipated discharge: Other
[2016-11-06 16:42] LABS: ANION GAP 8 (5-19); BLOOD UREA NITROGEN 11 mg/dL (7-20); CALCIUM 7.8 mg/dL (8.4-10.2); CARBON DIOXIDE 23 mmol/L (22-30); CHLORIDE 107 mmol/L (98-107); CREATININE RESULT 0.77 mg/dL (0.52-1.25); GLUCOSE 88 mg/dL (75-110); POTASSIUM 4.2 mmol/L (3.6-5.0); SODIUM 138.2 mmol/L (137-145)
[2016-11-06 16:52] LABS: APPEARANCE,URINE CLEAR; BILIRUBIN,URINE NEGATIVE (NEGATIVE); GLUCOSE, URINE NEGATIVE (NEGATIVE); KETONES,URINE NEGATIVE (NEGATIVE); LEUKOCYTE ESTERASE,URINE NEGATIVE (NEGATIVE); NITRITE,URINE NEGATIVE (NEGATIVE); PROTEIN,URINE NEGATIVE (NEGATIVE); URINE SPECIFIC GRAVITY 1.009; UROBILINOGEN,URINE NEGATIVE mg/dL (<2.0)
[2016-11-06] MEDS ORDERED: BACITRACIN ZINC OINTMENT 15 GM TP ONE (17:00)
[2016-11-07] MEDS: DIAZEPAM 5 MG TABLET PO SCH ×4 (01:30→17:23)
[2016-11-07] MEDS: HEPARIN SOD (PORCINE) 5,000 UNIT/ML 1 ML SYRINGE SUBCUT SCH ×3 (06:14→21:15)
[2016-11-07] MEDS: LANSOPRAZOLE 30 MG TAB.RAP.DR PO SCH ×2 (06:14→17:23)
[2016-11-07 07:52] LABS: ABSOLUTE EOSINOPHILS # (AUTO) 0.1 10^3/uL (0.0-0.6); ABSOLUTE LYMPHOCYTES (AUTO) 1.2 10^3/uL (0.5-4.7); ABSOLUTE MONOCYTES (AUTO) 0.4 10^3/uL (0.1-1.4); ABSOLUTE NEUT (AUTO) 2.7 10^3/uL (1.7-8.2); BASOPHILS % (AUTO) 0.9 % (0-2); HEMATOCRIT 39.4 % (37.9-51.0); HEMOGLOBIN 13.4 g/dL (13.5-17.0); HGB HCT DIFFERENCE 0.8; LYMPHOCYTES % (AUTO) 27.4 % (13-45); MEAN CORPUSCULAR VOLUME 94 fl (80-97); MONOCYTES % (AUTO) 8.5 % (3-13); RED BLOOD COUNT 4.18 10^6/uL (4.35-5.55); RED CELL DISTRIBUTION WIDTH 15.6 % (11.5-14.0); SEGMENTED NEUTROPHILS % (AUTO) 60.2 % (42-78); WHITE BLOOD COUNT 4.5 10^3/uL (4.0-10.5)
--- NOTE | 2016-11-07 08:52 | PDOC PROGRESS REPORT ---
Subjective Progress Note for:: 11/07/16 Subjective:: Patient denies chest pain, shortness of breath, abdominal pain, nausea, vomiting , fevers, chills, diarrhea, constipation, headache, new onset weakness. No new complaints. Physical Exam Vital Signs: Temp Pulse Resp BP Pulse Ox 98.0 F 56 L 20 136/86 H 99 11/06/16 23:43 11/07/16 02:51 11/06/16 23:43 11/06/16 23:43 11/06/16 23:43 Intake & Output 11/06/16 11/07/16 11/08/16 06:59 06:59 06:59 Intake Total 7569 5666 Output Total 2391 3066 Balance -215 -864 Weight 103.2 kg 103 kg Exam: General: Awake alert and oriented x3, no acute respiratory distress HEENT: AT/NC, PERRL, EOMI, oropharynx is moist, pink, no scleral icterus, no conjunctival injection Neck: No JVD, trachea midline Chest: Clear to auscultation bilaterally CV: Regular rate and rhythm, normal S1 and S2, no murmur, rub, or gallop Abdomen: Soft, nontender to palpation, nondistended, active bowel sounds; no rebound, rigidity, or guarding Extremities: No cyanosis, clubbing; trace edema Neuro: Cranial nerves II through XII are grossly intact without focal deficits; awake alert and oriented x3 Psych: Dysthymic mood and blunted affect Skin: 1mm papule left antecubital fossa, improved no erythema Results Laboratory Results: 11/06/16 04:16 11/06/16 16:11 11/06/16 11/06/16 11/06/16 10:22 10:22 14:18 Sodium 140.0 Potassium 3.7 Chloride 109 H Carbon Dioxide 19 L Anion Gap 12 BUN 9 Creatinine 0.69 Est GFR ( Amer) > 60 Est GFR (Non-Af Amer) > 60 Glucose 109 Serum Osmolality 287 Calcium 7.3 L Urine Color STRAW Urine Appearance CLEAR Urine pH 5.0 Ur Specific [place] 1.009 Urine Protein NEGATIVE Urine Glucose (UA) NEGATIVE Urine Ketones NEGATIVE Urine Blood NEGATIVE Urine Nitrite NEGATIVE Ur Leukocyte Esterase NEGATIVE Urine RBC (Auto) 0 11/06/16 11/06/16 16:11 16:11 Sodium 138.2 Potassium 4.2 Chloride 107 Carbon Dioxide 23 Anion Gap 8 BUN 11 Creatinine 0.77 Est GFR ( Amer) > 60 Est GFR (Non-Af Amer) > 60 Glucose 88 Serum Osmolality 284 Calcium 7.8 L Urine Color Urine Appearance Urine pH Ur Specific [place] Urine Protein Urine Glucose (UA) Urine Ketones Urine Blood Urine Nitrite Ur Leukocyte Esterase Urine RBC (Auto) 11/04/16 11/04/16 11/04/16 06:13 06:13 13:17 Creatine Kinase 72 CK-MB (CK-2) 0.25 Cancelled Troponin I 0.017 Cancelled 11/04/16 11/04/16 14:13 14:13 Creatine Kinase 67 CK-MB (CK-2) < 0.22 Troponin I < 0.012 Assessment & Plan - Diagnosis (1) Ethylene glycol poisoning Qualifiers: Encounter type: initial encounter Injury intent: intentional self-harm Qualified Code(s): T52.8X2A - Toxic effect of other organic solvents, intentional self-harm, initial encounter Is this a current diagnosis for this admission?: YesPlan: Patient currently on IVC. Discussed with calender let off operator at [place] poison control and they state that if patient's BMP and osmolality done at the same time are normal then patient may be discontinued on current therapy, which it was and is currently. Patient medically stable for transfer to psychiatric facility for treatment. (2) Alcohol abuse Is this a current diagnosis for this admission?: YesPlan: Continues medically guided withdrawl. Continue scheduled valium, now down to valium 5mg po q6. On thiamine, folic acid, and prn ativan. (3) Alcohol intoxication Qualifiers: Complication of substance-induced condition: uncomplicated Qualified Code(s): F10.120 - Alcohol abuse with intoxication, uncomplicated Is this a current diagnosis for this admission?: Yes (4) Benzodiazepine overdose Qualifiers: Encounter type: initial encounter Injury intent: intentional self-harm Qualified Code(s): T42.4X2A - Poisoning by benzodiazepines, intentional self-harm, initial encounter Is this a current diagnosis for this admission?: Yes (5) Suicide attempt Is this a current diagnosis for this admission?: YesPlan: IVC and psych consult. Pursue inpatient placement; patient is now medically stable. (6) Obesity due to excess calories Qualifiers: Obesity severity: non-morbid Qualified Code(s): E66.09 - Other obesity due to excess calories Is this a current diagnosis for this admission?: Yes (7) Anemia Qualifiers: Anemia type: unspecified type Qualified Code(s): D64.9 - Anemia, unspecified Is this a current diagnosis for this admission?: YesPlan: Mild anemia, outpatient work up if persists. - Time Time Spent with patient: 15-24 minutes Medications reviewed and adjusted accordingly: Yes Anticipated discharge: Other - psych Within: when bed available
[2016-11-07] MEDS: DOCUSATE SODIUM 100 MG CAPSULE PO SCH ×2 (09:26→17:23)
[2016-11-07] MEDS: FOLIC ACID 1 MG TABLET PO SCH (09:43)
[2016-11-07] MEDS: THIAMINE HCL 100 MG, FOLIC ACID 1 MG in NORMAL SALINE 50 ML IV SCH (09:44)
[2016-11-07] MEDS: BACITRACIN ZINC OINTMENT 15 GM TP SCH (09:45)
[2016-11-08] MEDS: DIAZEPAM 5 MG TABLET PO SCH ×4 (00:20→23:27)
[2016-11-08] MEDS: LANSOPRAZOLE 30 MG TAB.RAP.DR PO SCH ×2 (06:10→17:37)
[2016-11-08] MEDS: HEPARIN SOD (PORCINE) 5,000 UNIT/ML 1 ML SYRINGE SUBCUT SCH ×3 (06:12→23:27)
[2016-11-08] MEDS: BACITRACIN ZINC OINTMENT 15 GM TP SCH (09:34)
[2016-11-08] MEDS: DOCUSATE SODIUM 100 MG CAPSULE PO SCH ×2 (09:43→17:37)
[2016-11-08] MEDS: FOLIC ACID 1 MG TABLET PO SCH (09:43)
--- NOTE | 2016-11-08 15:01 | PDOC PROGRESS REPORT ---
Subjective Progress Note for:: 11/08/16 Subjective:: Patient has no new complaints. I'm awaiting further psychological recommendations. Patient denies fever, chills, headache, new focal weakness, chest pain, shortness of breath, abdominal pain, nausea, vomiting, diarrhea, constipation. Physical Exam Vital Signs: Temp Pulse Resp BP Pulse Ox 97.3 F 72 16 138/93 H 93 11/08/16 08:22 11/08/16 12:20 11/08/16 12:20 11/08/16 12:20 11/08/16 12:20 Intake & Output 11/07/16 11/08/16 11/09/16 06:59 06:59 06:59 Intake Total 5675 2145 Output Total 5900 2100 Balance -225 45 Weight 103 kg 103 kg GENERAL: No acute distress HEENT: Conjunctiva clear, nonicteric, moist mucous membranes, no JVD, midline trachea RESPIRATORY: Clear to auscultation bilaterally, no wheezes, no rhonchi CARDIAC: Regular rate and rhythm, no murmurs/gallops/rubs ABDOMEN: Soft, nondistended, nontender, positive bowel sounds, no rebound, no guarding EXTREMETIES: No edema, cyanosis, clubbing NEUROLOGIC: Alert, oriented to person/place/time, CN's grossly intact, no focal deficits SKIN: No rash, wounds PSYCH: Normal mood, normal affect Results Laboratory Results: 11/07/16 07:18 11/06/16 16:11 11/04/16 11/04/16 11/04/16 06:13 06:13 13:17 Creatine Kinase 72 CK-MB (CK-2) 0.25 Cancelled Troponin I 0.017 Cancelled 11/04/16 11/04/16 14:13 14:13 Creatine Kinase 67 CK-MB (CK-2) < 0.22 Troponin I < 0.012 Assessment & Plan - Diagnosis (1) Suicide attempt Is this a current diagnosis for this admission?: YesPlan: Patient on involuntary commitment. Awaiting further psychological recommendations. Patient is medically cleared for transfer to psychiatric facility if deemed appropriate. (2) Ethylene glycol poisoning Qualifiers: Encounter type: initial encounter Injury intent: intentional self-harm Qualified Code(s): T52.8X2A - Toxic effect of other organic solvents, intentional self-harm, initial encounter Is this a current diagnosis for this admission?: YesPlan: Kidney function normal. No further follow-up required. (3) Alcohol abuse Is this a current diagnosis for this admission?: YesPlan: No signs or symptoms of acute alcohol withdrawal at this time. Decrease Valium to 5 mg every 8 hours scheduled. (4) Benzodiazepine overdose Qualifiers: Encounter type: initial encounter Injury intent: intentional self-harm Qualified Code(s): T42.4X2A - Poisoning by benzodiazepines, intentional self-harm, initial encounter Is this a current diagnosis for this admission?: Yes - Time Time Spent with patient: 25-34 minutes Anticipated discharge: Other - Psychiatric facility Within: when bed available
--- NOTE | 2016-11-08 15:15 | PSYCHOLOGICAL NOTE ---
Psych Note - Psych Note Psych Note: Patient is a 56 year old male under IVC and admitted to [facility] due to intentional overdose as a suicide attempt. Patient was noted as medically cleared for placement last night. Conducted chart review in preparation for referring patient for psychiatric treatment. Conducted brief check in with patient to apprise of his status and review needs and criteria for IVC continuance. Patient states he is doing ok. Patient states he knows he is depressed and needs help, but that he has taken Clonazepam for anxiety, but reports he mostly used that to assist with withdrawal symptoms. Patient reports he is a binge drinker and will have episodes where he drinks daily/all day and then can go months without any alcohol. Patient reports he feels his underlying need is the depression. Patient reports a maternal and paternal family history of depression and substance abuse, but denies any other mental illness. Patient denies currently wanting to ; however, endorses his overdose as suicide attempt. Patient is A&O. Mood is sad with normal affect. Patient is now medically cleared from his suicide attempt. Patient denies A/V H; delusions not noted. Thought processes were organized and logical. Conversational speech was WNL for rate, tone, and prosody. Intellectual abilities were estimated within average range. Attention and focus were fair. Insight, judgment, and impulse control were poor. 311 (F32.9) Unspecified Depressive Disorder 303.90 (F10.20) Alcohol Related Disorder; Severe Impression\plan: Patient is recommended to remain under IVC. Patient suffered a serioud overdose of alcohol mixed with antifreeze, and prescription pills. Patient is a danger to himself. I consulted with Dr. Moses in regards to the care and management of this patient. Hospitalist made aware of disposition.
[2016-11-08] MEDS: LORAZEPAM INJ 2 MG/1 ML VIAL IV PRN ×2 (17:41→23:27)
[2016-11-09] MEDS: LANSOPRAZOLE 30 MG TAB.RAP.DR PO SCH (06:01)
[2016-11-09] MEDS: DIAZEPAM 5 MG TABLET PO SCH (06:01)
[2016-11-09] MEDS: HEPARIN SOD (PORCINE) 5,000 UNIT/ML 1 ML SYRINGE SUBCUT SCH (06:01)
[2016-11-09 09:31] VITALS: BP 120/83
[2016-11-09] MEDS: DOCUSATE SODIUM 100 MG CAPSULE PO SCH (09:58)
[2016-11-09] MEDS: BACITRACIN ZINC OINTMENT 15 GM TP SCH (09:58)
[2016-11-09] MEDS: FOLIC ACID 1 MG TABLET PO SCH (09:58)
--- NOTE | 2016-11-09 11:19 | PDOC TRANSFER SUMMARY ---
General Admission Date/PCP: 11/04/16 02:59 Admission Date: 11/04/16 Transfer Date: 11/09/16 Accepting Facility: Other (Comments) - Psychiatric facility Resuscitation Status: Full Code - Transfer Diagnosis (1) Suicide attempt Is this a current diagnosis for this admission?: Yes (2) Ethylene glycol poisoning Is this a current diagnosis for this admission?: Yes (3) Alcohol abuse Is this a current diagnosis for this admission?: Yes (4) Benzodiazepine overdose Is this a current diagnosis for this admission?: Yes - Transfer Medications Transfer Medications: Current Medications Albuterol (Ventolin 0.083% Neb 2.5 Mg/3 Ml Ampul) 2.5 mg NEB [id number] PRN PRN Reason: SHORTNESS OF BREATH Stop: 12/04/16 02:58 Bacitracin (Bacitracin Oint 15 Gm) 1 applic TP DAILY JESSIKA Stop: 11/14/16 09:59 Last Admin: 11/09/16 09:58 Dose: 1 applic Diazepam (Valium 5 Mg Tablet) 5 mg PO Q8 JESSIKA Stop: 11/15/16 21:59 Last Admin: 11/09/16 06:01 Dose: 5 mg Docusate Sodium (Colace 100 Mg Capsule) 100 mg PO BID JESSIKA Stop: 12/04/16 09:59 Last Admin: 11/09/16 09:58 Dose: 100 mg Folic Acid (Folvite 1 Mg Tablet) 1 mg PO DAILY JESSIKA Stop: 12/05/16 09:59 Last Admin: 11/09/16 09:58 Dose: 1 mg Heparin Sodium (Porcine) (Heparin Inj 5,000 Units/Ml 1 Ml Syringe) 5,000 unit SUBCUT Q8 JESSIKA Stop: 12/04/16 05:59 Last Admin: 11/09/16 06:01 Dose: Not Given Influenza Virus Vaccine Quadrival (Fluzone Adlt Quad [id number] Vac 0.5 Ml Syr) 0.5 ml IM .AT DISCHARGE PRN PRN Reason: THIS MED IS NOT "PRN" Stop: 12/04/16 05:50 Lansoprazole (Prevacid 30 Mg Odt Tablet) 30 mg PO BID@0600,1700 [facility] Stop: 12/05/16 16:59 Last Admin: 11/09/16 06:01 Dose: 30 mg Lorazepam (Ativan Inj 2 Mg/1 Ml Vial) 2 mg IV Q2HP PRN PRN Reason: withdrawl/agitation Stop: 11/11/16 15:39 Last Admin: 11/08/16 23:27 Dose: 2 mg Promethazine HCl (Phenergan 25 Mg Supp.Rect) 25 mg ID Q4HP PRN Stop: 12/04/16 08:37 Last Admin: 11/04/16 09:35 Dose: 25 mg - Allergies Allergies/Adverse Reactions: No Known Allergies Allergy (Unverified 11/04/16 00:38) - Diet/Activity Discharge Diet: Regular Discharge Activity: Activity As Tolerated Hospital Course Hospital Course: Patient was admitted for intentional ethylene glycol overdose. Patient was monitored and treated per poison control recommendations. Patient's kidney function remain normal. He was evaluated by psychology and recommendation was made for patient to remain on involuntary commitment and be transferred to psychiatric facility. Patient is transferred to psychiatric facility in stable condition. Patient has history of alcohol abuse and was placed on scheduled Valium which has been tapered off. Patient is being discharged on no medications. I will defer psychiatric medication management to accepting psychiatric facility. Physical Exam Vital Signs: Temp Pulse Resp BP Pulse Ox 97.5 F 88 16 120/83 99 11/09/16 08:00 11/09/16 08:00 11/09/16 08:00 11/09/16 08:00 11/09/16 08:00 Intake & Output 11/08/16 11/09/16 11/10/16 06:59 06:59 06:59 Intake Total 2145 840 Output Total 2100 1725 Balance 45 -885 Weight 103 kg 103 kg GENERAL: No acute distress HEENT: Conjunctiva clear, nonicteric, moist mucous membranes, no JVD, midline trachea RESPIRATORY: Clear to auscultation bilaterally, no wheezes, no rhonchi CARDIAC: Regular rate and rhythm, no murmurs/gallops/rubs ABDOMEN: Soft, nondistended, nontender, positive bowel sounds, no rebound, no guarding EXTREMETIES: No edema, cyanosis, clubbing NEUROLOGIC: Alert, oriented to person/place/time, CN's grossly intact, no focal deficits SKIN: No rash, wounds PSYCH: Normal mood, normal affect Results Laboratory Results: 11/07/16 07:18 11/06/16 16:11 01/20/17 01/20/17 01/20/17 06:13 06:13 13:17 Creatine Kinase 72 CK-MB (CK-2) 0.25 Cancelled Troponin I 0.017 Cancelled 11/04/16 11/04/16 14:13 14:13 Creatine Kinase 67 CK-MB (CK-2) < 0.22 Troponin I < 0.012 Labs- Last Values WBC 4.5 10^3/uL (4.0-10.5) 11/07/16 07:18 RBC 4.18 10^6/uL (4.35-5.55) L 11/07/16 07:18 Hgb 13.4 g/dL (13.5-17.0) L 11/07/16 07:18 Hct 39.4 % (37.9-51.0) 11/07/16 07:18 MCV 94 fl (80-97) 11/07/16 07:18 MCH 32.0 pg (27.0-33.4) 11/07/16 07:18 MCHC 34.0 g/dL (32.0-36.0) 11/07/16 07:18 RDW 15.6 % (11.5-14.0) H 11/07/16 07:18 Plt Count 190 10^3/uL (150-450) 11/07/16 07:18 Seg Neutrophils % 60.2 % (42-78) 11/07/16 07:18 Lymphocytes % 27.4 % (13-45) 11/07/16 07:18 Monocytes % 8.5 % (3-13) 11/07/16 07:18 Eosinophils % 3.0 % (0-6) 11/07/16 07:18 Basophils % 0.9 % (0-2) 11/07/16 07:18 Absolute Neutrophils 2.7 10^3/uL (1.7-8.2) 11/07/16 07:18 Absolute Lymphocytes 1.2 10^3/uL (0.5-4.7) 11/07/16 07:18 Absolute Monocytes 0.4 10^3/uL (0.1-1.4) 11/07/16 07:18 Absolute Eosinophils 0.1 10^3/uL (0.0-0.6) 11/07/16 07:18 Absolute Basophils 0.0 10^3/uL (0.0-0.2) 11/07/16 07:18 PT 13.6 SEC (11.4-15.4) 11/05/16 04:25 INR 1.01 11/05/16 04:25 Carbonic Acid 1.25 mmol/L (1.05-1.35) 11/04/16 03:16 HCO3/H2CO3 Ratio 18:1 11/04/16 03:16 ABG pH 7.36 (7.35-7.45) 11/04/16 03:16 ABG pCO2 41.4 mmHg (35-45) 11/04/16 03:16 ABG pO2 83.4 mmHg (80-100) 11/04/16 03:16 ABG HCO3 22.7 mmol/L (20-26) 11/04/16 03:16 ABG Total CO2 23.9 mmol/L (23-27) 11/04/16 03:16 ABG O2 Saturation 95.8 % (94-98) 11/04/16 03:16 ABG Base Excess -2.7 mmol/L 11/04/16 03:16 FiO2 2L 11/04/16 03:16 Sodium 138.2 mmol/L (137-145) 11/06/16 16:11 Potassium 4.2 mmol/L (3.6-5.0) 11/06/16 16:11 Chloride 107 mmol/L (98-107) 11/06/16 16:11 Carbon Dioxide 23 mmol/L (22-30) 11/06/16 16:11 Anion Gap 8 (5-19) 11/06/16 16:11 BUN 11 mg/dL (7-20) 11/06/16 16:11 Creatinine 0.77 mg/dL (0.52-1.25) 11/06/16 16:11 Est GFR ( Amer) > 60 (>60) 11/06/16 16:11 Est GFR (Non-Af Amer) > 60 (>60) 11/06/16 16:11 Glucose 88 mg/dL (75-110) 11/06/16 16:11 Serum Osmolality 285 mOsm/kg (275-301) 11/07/16 07:18 Calcium 7.8 mg/dL (8.4-10.2) L 11/06/16 16:11 Magnesium 2.0 mg/dL (1.6-2.3) 11/07/16 07:18 Total Bilirubin 1.2 mg/dL (0.2-1.3) 11/05/16 04:25 Direct Bilirubin 0.0 mg/dL (0.0-0.3) 11/05/16 04:25 AST 37 U/L (17-59) 11/05/16 04:25 ALT 41 U/L (21-72) 11/05/16 04:25 Alkaline Phosphatase 61 U/L (38-126) 11/05/16 04:25 Creatine Kinase 67 U/L (55-170) 11/04/16 14:13 CK-MB (CK-2) < 0.22 ng/mL (<4.55) 11/04/16 14:13 Troponin I < 0.012 ng/mL 11/04/16 14:13 Total Protein 5.0 g/dL (6.3-8.2) L 11/05/16 04:25 Albumin 3.0 g/dL (3.5-5.0) L 11/05/16 04:25 Urine Color STRAW 11/06/16 14:18 Urine Appearance CLEAR 11/06/16 14:18 Urine pH 5.0 (5.0-9.0) 11/06/16 14:18 Ur Specific [place] 1.009 11/06/16 14:18 Urine Protein NEGATIVE mg/dL (NEGATIVE) 11/06/16 14:18 Urine Glucose (UA) NEGATIVE mg/dL (NEGATIVE) 11/06/16 14:18 Urine Ketones NEGATIVE mg/dL (NEGATIVE) 11/06/16 14:18 Urine Blood NEGATIVE (NEGATIVE) 11/06/16 14:18 Urine Nitrite NEGATIVE (NEGATIVE) 11/06/16 14:18 Urine Bilirubin NEGATIVE (NEGATIVE) 11/06/16 14:18 Urine Urobilinogen NEGATIVE mg/dL (<2.0) 11/06/16 14:18 Ur Leukocyte Esterase NEGATIVE (NEGATIVE) 11/06/16 14:18 Urine WBC (Auto) 0 /HPF 11/04/16 00:25 Urine RBC (Auto) 0 /HPF 11/06/16 14:18 Urine Ascorbic Acid NEGATIVE (NEGATIVE) 11/06/16 14:18 Salicylates < 1.0 mg/dL (2.0-20.0) L 11/04/16 00:15 Urine Opiates Screen NEGATIVE 11/04/16 00:25 Urine Methadone Screen NEGATIVE 11/04/16 00:25 Acetaminophen < 10 ug/mL (10-30) L 11/04/16 00:15 Ur Barbiturates Screen NEGATIVE 11/04/16 00:25 Ur Phencyclidine Scrn NEGATIVE 11/04/16 00:25 Ur Amphetamines Screen NEGATIVE 11/04/16 00:25 U Benzodiazepines Scrn NEGATIVE 11/04/16 00:25 Urine Cocaine Screen NEGATIVE 11/04/16 00:25 U Marijuana (THC) Screen NEGATIVE 11/04/16 00:25 Ethylene Glycol 595 mg/dL (None detected) H 11/04/16 02:28 Serum Alcohol 196 mg/dL (NONE DETECTED) 11/04/16 00:15 Plan Discharge Plan: Transfer to psychiatric facility. Time Spent: Greater than 30 Minutes
== END 2016-11-09 12:18 | DRG 918 ==
LOC: ER 00:04 → UNDOADMIN 02:18 → EH 02:18 → ICU 04:45 → EH 04:45 → 3N 11-05 13:55 → 5 11-06 22:40
PROVIDERS: ADMIT Internal Medicine; ATTEND Internal Medicine
PROC: 3E0F73Z Introduction of Anti-inflammatory into Respiratory Tract, Via Natural or Artificial Opening (ICD-10-PCS; principal; 2016-11-04)
PROC: 3E0234Z Introduction of Serum, Toxoid and Vaccine into Muscle, Percutaneous Approach (ICD-10-PCS; 2016-11-09)
DX: T52.8X2A Toxic effect of other organic solvents, intentional self-harm, initial encounter (principal); T42.4X2A Poisoning by benzodiazepines, intentional self-harm, initial encounter; F32.9 Major depressive disorder, single episode, unspecified; F10.129 Alcohol abuse with intoxication, unspecified; Y90.6 Blood alcohol level of 120-199 mg/100 ml; E66.09 Other obesity due to excess calories; D64.9 Anemia, unspecified; Z68.34 Body mass index [BMI] 34.0-34.9, adult; Z79.899 Other long term (current) drug therapy; Z91.5 Personal history of self-harm; Z23 Encounter for immunization; Z59.9 Problem related to housing and economic circumstances, unspecified
CPT/HCPCS: 36415; 36600; 80048; 80053; 80076; 80307; 81001; 82550; 82553; 82693; 82803; 83735; 83930; 84484; 85025; 85610; 90686; 93005; 93010; 96361; 96374; 96375; 99291; J0640; J1451; J1644; J2060; J2405; J3411; J3475; J3480; J3490; J7030; J7060; S0164